=== PATIENT | female | born 1950 | race Caucasian/White ===

== ENCOUNTER → 2018-05-01 11:20 | Outpatient (CLI) | payer MEDICARE, OTHER, SELFPAY ==
--- NOTE | 2018-05-01 | DI.MG.S_ITS ---
BILATERAL DIGITAL SCREENING MAMMOGRAM 3D/2D WITH CAD: 05/01/2018 CLINICAL: Routine screening. Comparison is made to exams dated: 04/22/2017 mammogram, 04/19/2016 mammogram, and 04/12/2015 mammogram - [facility]. There are scattered fibroglandular elements in both breasts. Current study was also evaluated with a Computer Aided Detection (CAD) system. No significant masses, calcifications, or other findings are seen in either breast. There has been no significant interval change. IMPRESSION: NEGATIVE There is no mammographic evidence of malignancy. A 1 year screening mammogram is recommended. This exam was interpreted at Station ID: [id number]. NOTE: For mammograms, a report in lay terms will be sent to the patient. Approximately 15% of breast malignancies will not be visualized mammographically. In the management of a palpable breast mass, a negative mammogram must not discourage biopsy of a clinically suspicious lesion. Electronically Signed By: Elisa todd/concepción:05/01/2018 13:08:52 letter sent: Normal Exam ACR BI-RADS Category 1: Negative 3341F
== END ==
PROVIDERS: Family Provider Internal Medicine; PCP Internal Medicine; Visit Provider Internal Medicine
DX: Z12.31 Encounter for screening mammogram for malignant neoplasm of breast (principal)
CPT/HCPCS: 77063; 77067

== ENCOUNTER → 2018-07-08 07:43 | Outpatient (CLI) | payer MEDICARE, OTHER, SELFPAY ==
[2018-07-08 08:38] LABS: Blood Urea Nitrogen 41 mg/dL (7-17); Calcium 9.3 mg/dL (8.4-10.2); Carbon Dioxide 29 mmol/L (22-32); Chloride 103 mmol/L (98-107); Cholesterol 171 mg/dL (140-199); Estimated Glomerular Filt Rate 55.5 mL/min (>60); Glucose 85 mg/dL (80-110); HDL Cholesterol 80 mg/dL (40-60); HEMOLYSIS < 15 (0-50); LDL Cholesterol Calculated 80 mg/dL (<100); Potassium 4.5 mmol/L (3.4-5.1); Sodium 142 mmol/L (137-145); Triglycerides 54 mg/dL (35-150)
== END ==
PROVIDERS: PCP Internal Medicine; Visit Provider Internal Medicine
DX: I10 Essential (primary) hypertension (principal); E78.00 Pure hypercholesterolemia, unspecified
CPT/HCPCS: 36415; 80048; 80061

== ENCOUNTER → 2018-10-29 16:11 | Outpatient (CLI) | payer MEDICARE, OTHER, SELFPAY ==
[2018-10-29 17:25] LABS: Add Manual Diff / Slide Review NO; Basophils Absolute Auto 100 /uL (0-100); Basophils Percent Auto 0.8 % (0-2); Eosinophils Absolute Auto 400 /uL (0-450); Eosinophils Percent Auto 5.5 % (2-4); Hematocrit 45.1 % (36-46); Hemoglobin 14.4 g/dL (12.0-16.0); Lymphocytes Absolute Auto 1900 /uL (1100-4500); Lymphocytes Percent Auto 29.5 % (25-40); Mean Corpuscular HGB Conc 31.9 % (30-36); Mean Corpuscular Hemoglobin 30.4 PG (26-34); Mean Corpuscular Volume 95.4 fL (80-100); Monocytes Absolute Auto 500 /uL (0-900); Monocytes Percent Auto 7.9 % (3-14); Neutrophils Absolute Auto 3700 /uL (1500-7000); Neutrophils Percent Auto 56.3 % (50-75); Platelet Count 358 X10^3/uL (150-400); Red Blood Cell Count 4.73 X10^6/uL (4.0-5.2); Red Cell Distribution Width 14.7 % (11.6-14.8); White Blood Cell Count 6.6 X10^3/uL (4.5-11.0)
[2018-10-29 18:14] LABS: Alanine Aminotransferase 59 IU/L (9-52); Albumin 4.5 g/dL (3.5-5.0); Albumin Globulin Ratio 1.6 (1.0-2.8); Alkaline Phosphatase 116 U/L (38-126); Aspartate Aminotransferase 43 IU/L (14-36); Bilirubin Total 0.5 mg/dL (0.2-1.3); Bilirubin Unconjugated 0.3 mg/dL (0.0-1.1); Globulin 2.8 g/dL (1.7-4.1); HEMOLYSIS < 15 (0-50); Total Protein 7.3 g/dL (6.3-8.2)
== END ==
PROVIDERS: PCP Internal Medicine; Visit Provider Psychiatry & Neurology Neurology
DX: G35 Multiple sclerosis (principal)
CPT/HCPCS: 36415; 80076; 85025

== ENCOUNTER → 2019-03-26 08:44 | Outpatient (CLI) | payer MEDICARE, OTHER, SELFPAY ==
[2019-03-26 09:31] LABS: Add Manual Diff / Slide Review NO; Basophils Absolute Auto 100 /uL (0-100); Eosinophils Absolute Auto 800 /uL (0-450); Hematocrit 43.4 % (36-46); Hemoglobin 14.1 g/dL (12.0-16.0); Lymphocytes Absolute Auto 1300 /uL (1100-4500); Lymphocytes Percent Auto 26.9 % (25-40); Mean Corpuscular HGB Conc 32.4 % (30-36); Mean Corpuscular Hemoglobin 31.3 PG (26-34); Mean Corpuscular Volume 96.4 fL (80-100); Monocytes Absolute Auto 600 /uL (0-900); Neutrophils Absolute Auto 2100 /uL (1500-7000); Neutrophils Percent Auto 42.1 % (50-75); Platelet Count 306 X10^3/uL (150-400); Red Blood Cell Count 4.51 X10^6/uL (4.0-5.2); Red Cell Distribution Width 14.6 % (11.6-14.8)
[2019-03-26 10:04] LABS: Alanine Aminotransferase 64 IU/L (9-52); Albumin 4.1 g/dL (3.5-5.0); Albumin Globulin Ratio 1.4 (1.0-2.8); Alkaline Phosphatase 119 U/L (38-126); Aspartate Aminotransferase 63 IU/L (14-36); Bilirubin Total 0.5 mg/dL (0.2-1.3); Bilirubin Unconjugated 0.5 mg/dL (0.0-1.1); HEMOLYSIS < 15 (0-50); Total Protein 7.1 g/dL (6.3-8.2)
== END ==
PROVIDERS: PCP Internal Medicine; Visit Provider Psychiatry & Neurology Neurology
DX: G35 Multiple sclerosis (principal)
CPT/HCPCS: 36415; 80076; 85025

== ENCOUNTER → 2019-05-28 15:40 | Outpatient (CLI) | payer MEDICARE, OTHER, SELFPAY ==
--- NOTE | 2019-05-28 | DI.MG.S_ITS ---
BILATERAL DIGITAL SCREENING MAMMOGRAM 3D/2D WITH CAD: 05/28/2019 CLINICAL: Routine screening. Comparison is made to exams dated: 05/01/2018 mammogram, 04/22/2017 mammogram, and 04/19/2016 mammogram - [facility]. The tissue of both breasts is heterogeneously dense. This may lower the sensitivity of mammography. Current study was also evaluated with a Computer Aided Detection (CAD) system. No significant masses, calcifications, or other findings are seen in either breast. There has been no significant interval change. IMPRESSION: NEGATIVE There is no mammographic evidence of malignancy. A 1 year screening mammogram is recommended. This exam was interpreted at Station ID: [id number]. NOTE: For mammograms, a report in lay terms will be sent to the patient. Approximately 15% of breast malignancies will not be visualized mammographically. In the management of a palpable breast mass, a negative mammogram must not discourage biopsy of a clinically suspicious lesion. Electronically Signed By: Josesito gong/concepción:05/28/2019 17:05:31 letter sent: Normal Exam ACR BI-RADS Category 1: Negative 3341F
== END ==
PROVIDERS: PCP Internal Medicine; Visit Provider Internal Medicine
DX: Z12.31 Encounter for screening mammogram for malignant neoplasm of breast (principal)
CPT/HCPCS: 77063; 77067

== ENCOUNTER → 2019-05-28 15:43 | Outpatient (CLI) | payer MEDICARE, OTHER, SELFPAY ==
[2019-05-28 16:04] LABS: Add Manual Diff / Slide Review NO; Basophils Absolute Auto 100 /uL (0-100); Basophils Percent Auto 1.1 % (0-2); Eosinophils Absolute Auto 700 /uL (0-450); Eosinophils Percent Auto 8.5 % (2-4); Hematocrit 44.7 % (36-46); Hemoglobin 14.4 g/dL (12.0-16.0); Lymphocytes Absolute Auto 1800 /uL (1100-4500); Mean Corpuscular HGB Conc 32.3 % (30-36); Mean Corpuscular Hemoglobin 30.6 PG (26-34); Mean Corpuscular Volume 94.7 fL (80-100); Monocytes Absolute Auto 1000 /uL (0-900); Neutrophils Absolute Auto 4400 /uL (1500-7000); Neutrophils Percent Auto 55.4 % (50-75); Platelet Count 301 X10^3/uL (150-400); Red Blood Cell Count 4.72 X10^6/uL (4.0-5.2); Red Cell Distribution Width 14.6 % (11.6-14.8)
[2019-05-28 17:07] LABS: Alanine Aminotransferase 74 IU/L (9-52); Albumin 4.4 g/dL (3.5-5.0); Albumin Globulin Ratio 1.8 (1.0-2.8); Alkaline Phosphatase 164 U/L (38-126); Aspartate Aminotransferase 57 IU/L (14-36); Bilirubin Total 0.5 mg/dL (0.2-1.3); Bilirubin Unconjugated 0.3 mg/dL (0.0-1.1); Globulin 2.5 g/dL (1.7-4.1); HEMOLYSIS < 15 (0-50); Total Protein 6.9 g/dL (6.3-8.2)
== END ==
PROVIDERS: PCP Internal Medicine; Visit Provider Psychiatry & Neurology Neurology
DX: G35 Multiple sclerosis (principal)
CPT/HCPCS: 36415; 80076; 85025

== ENCOUNTER → 2019-06-10 08:14 | Outpatient (CLI) | payer MEDICARE, OTHER, SELFPAY ==
[2019-06-10 09:49] LABS: Alanine Aminotransferase 94 IU/L (9-52); Albumin 4.3 g/dL (3.5-5.0); Albumin Globulin Ratio 1.7 (1.0-2.8); Alkaline Phosphatase 156 U/L (38-126); Aspartate Aminotransferase 85 IU/L (14-36); Bilirubin Total 0.7 mg/dL (0.2-1.3); Bilirubin Unconjugated 0.4 mg/dL (0.0-1.1); Globulin 2.5 g/dL (1.7-4.1); HEMOLYSIS < 15 (0-50); Total Protein 6.8 g/dL (6.3-8.2)
== END ==
PROVIDERS: Family Provider Internal Medicine; PCP Internal Medicine; Visit Provider Psychiatry & Neurology Neurology
DX: G35 Multiple sclerosis (principal)
CPT/HCPCS: 36415; 80076

== ENCOUNTER → 2019-07-28 09:11 | Outpatient (CLI) | payer MEDICARE, OTHER, SELFPAY ==
[2019-07-28 09:57] LABS: Alanine Aminotransferase 45 IU/L (<35); Aspartate Aminotransferase 49 IU/L (14-36); BUN Creatinine Ratio 25.5 (6-22); Blood Urea Nitrogen 28 mg/dL (7-17); Calcium 9.7 mg/dL (8.4-10.2); Carbon Dioxide 32 mmol/L (22-32); Chloride 100 mmol/L (98-107); Cholesterol 245 mg/dL (140-199); Estimated Glomerular Filt Rate 49.5 mL/min (>60); Glucose 95 mg/dL (80-110); HDL Cholesterol 75 mg/dL (40-60); HEMOLYSIS < 15 (0-50); LDL Cholesterol Calculated 147 mg/dL (<100); Sodium 139 mmol/L (137-145); Triglycerides 115 mg/dL (35-150)
== END ==
PROVIDERS: PCP Internal Medicine; Visit Provider Internal Medicine
DX: I10 Essential (primary) hypertension (principal); E78.00 Pure hypercholesterolemia, unspecified
CPT/HCPCS: 36415; 80048; 80061; 84450; 84460

== ENCOUNTER → 2019-09-01 07:45 | Outpatient (CLI) | payer MEDICARE, SELFPAY ==
[2019-09-01 08:39] LABS: Alanine Aminotransferase 40 IU/L (<35); Albumin 4.2 g/dL (3.5-5.0); Albumin Globulin Ratio 1.5 (1.0-2.8); Alkaline Phosphatase 95 U/L (38-126); Aspartate Aminotransferase 49 IU/L (14-36); Bilirubin Total 0.6 mg/dL (0.2-1.3); Bilirubin Unconjugated 0.6 mg/dL (0.0-1.1); Globulin 2.8 g/dL (1.7-4.1); HEMOLYSIS < 15 (0-50)
== END ==
PROVIDERS: PCP Internal Medicine; Visit Provider Psychiatry & Neurology Neurology
DX: G35 Multiple sclerosis (principal)
CPT/HCPCS: 36415; 80076

== ENCOUNTER → 2019-10-21 08:21 | Outpatient (CLI) | payer MEDICARE, SELFPAY ==
[2019-10-21 09:08] LABS: Alanine Aminotransferase 27 IU/L (<35); Aspartate Aminotransferase 42 IU/L (14-36); Cholesterol 182 mg/dL (140-199); HDL Cholesterol 65 mg/dL (40-60); LDL Cholesterol Calculated 98 mg/dL (<100); Triglycerides 95 mg/dL (35-150)
== END ==
PROVIDERS: PCP Internal Medicine; Referring Provider Internal Medicine; Visit Provider Internal Medicine
DX: E78.00 Pure hypercholesterolemia, unspecified (principal)
CPT/HCPCS: 36415; 80061; 84450; 84460

== ENCOUNTER → 2019-12-09 09:24 | Outpatient (CLI) | payer MEDICARE, SELFPAY ==
[2019-12-09 10:19] LABS: Add Manual Diff / Slide Review NO; Basophils Absolute Auto 100 /uL (0-100); Basophils Percent Auto 1.1 % (0-2); Eosinophils Absolute Auto 500 /uL (0-450); Eosinophils Percent Auto 8.4 % (2-4); Hematocrit 42.5 % (36-46); Hemoglobin 14.1 g/dL (12.0-16.0); Lymphocytes Absolute Auto 1500 /uL (1100-4500); Lymphocytes Percent Auto 27.2 % (25-40); Mean Corpuscular HGB Conc 33.1 % (30-36); Mean Corpuscular Hemoglobin 31.2 PG (26-34); Mean Corpuscular Volume 94.2 fL (80-100); Monocytes Absolute Auto 500 /uL (0-900); Monocytes Percent Auto 9.8 % (3-14); Neutrophils Absolute Auto 3000 /uL (1500-7000); Neutrophils Percent Auto 53.5 % (50-75); Platelet Count 344 X10^3/uL (150-400); Red Blood Cell Count 4.51 X10^6/uL (4.0-5.2); Red Cell Distribution Width 14.8 % (11.6-14.8); White Blood Cell Count 5.5 X10^3/uL (4.5-11.0)
[2019-12-09 10:30] LABS: Alanine Aminotransferase 33 IU/L (<35); Albumin 4.1 g/dL (3.5-5.0); Albumin Globulin Ratio 1.5 (1.0-2.8); Alkaline Phosphatase 90 U/L (38-126); Aspartate Aminotransferase 44 IU/L (14-36); BUN Creatinine Ratio 25.2 (6-22); Bilirubin Total 0.6 mg/dL (0.2-1.3); Blood Urea Nitrogen 26 mg/dL (7-17); Calcium 9.6 mg/dL (8.4-10.2); Carbon Dioxide 31 mmol/L (22-32); Chloride 101 mmol/L (98-107); Estimated Glomerular Filt Rate 53.4 mL/min (>60); Globulin 2.8 g/dL (1.7-4.1); Glucose 75 mg/dL (80-110); HEMOLYSIS < 15 (0-50); Lactate Dehydrogenase 421 U/L (313-618); Potassium 4.1 mmol/L (3.4-5.1); Sodium 138 mmol/L (137-145); Total Protein 6.9 g/dL (6.3-8.2)
== END ==
PROVIDERS: PCP Internal Medicine; Referring Provider Physician Assistant; Visit Provider Physician Assistant
DX: R21 Rash and other nonspecific skin eruption (principal)
CPT/HCPCS: 36415; 80053; 83615; 85025

== ENCOUNTER → 2020-02-25 07:32 | Outpatient (CLI) | payer MEDICARE, SELFPAY ==
[2020-02-25 08:31] LABS: Hematocrit 41.5 % (36-46); Hemoglobin 13.7 g/dL (12.0-16.0); Mean Corpuscular HGB Conc 33.1 % (30-36); Mean Corpuscular Hemoglobin 31.2 PG (26-34); Mean Corpuscular Volume 94.4 fL (80-100); Platelet Count 322 X10^3/uL (150-400); Red Cell Distribution Width 14.7 % (11.6-14.8); White Blood Cell Count 5.1 X10^3/uL (4.5-11.0)
[2020-02-25 09:08] LABS: Neutrophils Absolute Manual 2397 /uL (3000-5900); RBC Morphology Normal Morphology; Total Cells Counted 100
== END ==
PROVIDERS: PCP Internal Medicine; Referring Provider Internal Medicine; Visit Provider Internal Medicine
DX: R21 Rash and other nonspecific skin eruption (principal)
CPT/HCPCS: 36415; 85025

== ENCOUNTER → 2020-03-16 10:40 | Oncology outpatient (ONC) | payer MEDICARE, SELFPAY ==
[2020-02-24 14:18] VITALS: BP 120/79; PULSE 88; RESP 18; TEMP 36.8; O2SAT 97
--- NOTE | 2020-02-24 15:16 | P.CONONC_ITS ---
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 She describes a 1-2 year history of a pruritic red rash that has predominantly been present on her legs. It she does not recall that it has been raised or had a thickness to it. It has responded to sunlight exposure as well as topical steroids. Because of the persistence of the rash she was seen by Holli delgadillo with Sir Elvis huerta at [facility] and a biopsy was obtained. This was non specific. Initially raise the question of a cutaneous T-cell lymphoma but there was not clear evidence of monoclonal T-cell receptor rearrangement. Peripheral blood for sleep flow cytometry was nondiagnostic. With these findings, she is referred for oncology consultation. From her perspective she is generally feeling good. She has noticed some alopecia the last year or 2 this been slowly progressive. She has multiple sclerosis that is worse in the heat. She has some arthritic symptoms in her hands primarily but knows red or swollen joints. She denies other pain, bleeding, localized weakness, fever, chills, nausea, vomiting, cough or shortn ess of breath. All other systems are negative. Past medical history 1. History of multiple sclerosis 2. She has had no operations or surgeries 3. Family history is remarkable for melanoma in her grandfather and liver cancer in her mother. 4. 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 She is a never smoker and only an occasional drinker. She is and accompanied by her who is very supportive 5. Current medications include atorvastatin 20 mg daily, citalopram 20 mg daily, lisinopril 20 mg daily, hydrochlorothiazide 12.5 mg daily, pramipexole 0.25 mg 3 times a day, as needed triamcinolone cream, fish oil, vitamin-D, glucosamine, Aimovig 70 mg once a month, as needed Flonase, as needed Rizatriptan, as needed Benadryl and as needed Tylenol 6. She is allergic to sulfa 7. She denies diabetes, rheumatic fever, tuberculosis, heart attacks, strokes, stomach ulcers, pneumonia or any kind of cancer 8. High blood pressure 9. Migraine headaches CC: Humberto Nelson MD Home Medications and Allergies Home Medications Medication Instructions Recorded Confirmed Type [glucosamine/chondrot] 1 tab DAILY #0 05/04/17 02/24/20 History cholecalciferol (vitamin D3) 1,000 iu PO QDAY #0 05/04/17 02/24/20 History [Vitamin D3] omega 3-tvn-rcn-fish oil [Fish Oil] 1,000 mg PO DAILY #0 05/04/17 02/24/20 History fluticasone propionate 50 2 spray NASAL DAILY 12/16/17 02/24/20 History mcg/actuation nasal spray,suspension onabotulinumtoxinA 200 unit 200 unit IM ONCE 12/16/17 02/24/20 History solution for injection pramipexole 0.25 mg tablet 0.25 mg PO TID 12/16/17 02/24/20 History atorvastatin 10 mg tablet 20 mg PO HS #0 tab 01/27/18 02/24/20 History citalopram 20 mg tablet 20 mg PO DAILY 01/27/18 02/24/20 History triamcinolone acetonide 0.5 % 1 applictn TOP BID 01/27/18 02/24/20 History topical cream rizatriptan 10 mg tablet 10 mg PO .COMPLEX PRN #6 tab 03/25/18 02/24/20 Rx erenumab-aooe 70 mg/mL 140 mg SUBCUT QMONTH #2 ml 09/24/18 02/24/20 Rx subcutaneous auto-injector erenumab-aooe 140 mg/mL 140 mg SUBCUT QMONTH #1 ml 05/21/19 02/24/20 Rx subcutaneous auto-injector lisinopril-hydrochlorothiazide 1 tab DAILY 02/24/20 02/24/20 History Allergies Allergy/AdvReac Type Severity Reaction Status Date / Time Sulfa (Sulfonamide Allergy Unknown RASH Verified 07/14/19 11:40 Antibiotics) [SULFA (SULFONAMIDE ANTIBIOTICS)] Medical History - Social History Smoking Status: Never smoker Review of Systems - Patient Self-Reported Symptoms SR Skin issues: Skin rash or itching, Hair loss or scalp prob SR Musculoskeletal issues: Joint pain or swelling SR Neuro issues: Headache SR Endocrine issues: Heat intolerance Exam Vital signs: Vital Signs Temp Pulse Resp BP Pulse Ox 02/24/20 14:18 98.2 F 88 18 120/79 97 Intake and Output 02/23/20 02/24/2020 23:59 07:59 15:59 Other: Weight 54.1 kg Patient Weight 02/24/20 23:59 Weight 54.1 kg Narrative: There was no palpable lymphadenopathy in the cervical, supraclavicular, epitrochlear, axillary, inguinal or femoral regions. There were several slightly red non raised areas on her upper legs and several areas of thinning of the skin primarily on her legs. There were no raised or pigmented lesions. Her previous biopsy site looked well healed. The nails were normal. Lungs were clear without wheezes or rales. Breath sounds were equal throughout both lung miranda. Results - Imaging Additional studies: Procedures Closed reduction of temporomandibular dislocation (04/05/14) Colonoscopy (01/18/14) Injection or infusion of other therapeutic or prophylactic substance (04/05/14) Assessment and Plan (1) Rash and nonspecific skin eruption Status: Acute Her rash has some reassuring aspects in that it has been present for the past 1- 2 years, has waxed and waned significantly, is better with sunlight exposure and topical steroids, at that and does not have an associated skin thickening. The chemistry panel was unrevealing. Both flow cytometry and biopsy were not diagnostic of an underlying T-cell lymphoma or other malignancy. I discussed Ms. Davidson's case with ELVIS Robertson from [facility]. Ms. magana her confirmed the time frame and rash features described by the patient. We reviewed the fact that the current findings are new nondiagnostic. I will will request a 2nd opinion on her pathology from the [facility]. Will also send of CBC with manual differential today. Will plan to see her back here for follow-up in 2-3 weeks to review these results. Further plans will be made once the steps have been completed. I personally spent 46 minutes in today's [id number] visit with greater than 50% of the time spent in counseling regarding the issues outlined above. Impression: 1. Fluctuating pruritic, red, nonraised skin rash over the past 1-2 years 2. Indeterminate findings for lymphoma on skin biopsy and peripheral blood flow cytometry 3. Patient is clinically well Recommendations: 1. Will request a 2nd pathology opinion on her biopsy and flow cytometry from the [facility] 2. 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 CBC with manual differential today 4. Return in 2-3 weeks for review of results with further plans to made at that time.
--- NOTE | 2020-03-14 12:03 | PC.NURSE ---
Pt called to inquire whether or not the [facility] consult had occurred, as per Dr. Jeronimo from the last f/u. Pt is wondering whether to keep upcoming scheduled appointment on Saturday. Will f/u with pt.
[2020-03-16 11:07] VITALS: BP 110/70; PULSE 76; RESP 16; TEMP 36.8; O2SAT 96
--- NOTE | 2020-03-16 13:04 | P.PNONC_ITS ---
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 She describes a 1-2 year history of a pruritic red rash that has predominantly been present on her legs. It she does not recall that it has been raised or had a thickness to it. It has responded to sunlight exposure as well as topical steroids. Because of the persistence of the rash she was seen by Holli delgadillo with Sir Cain huerta at [facility] and a biopsy was obtained. This was non specific. Initially raise the question of a cutaneous T-cell lymphoma but there was not clear evidence of monoclonal T-cell receptor rearrangement. Peripheral blood for sleep flow cytometry was nondiag nostic. With these findings, she is referred for oncology consultation. From her perspective she is generally feeling good. She has noticed some alopecia the last year or 2 this been slowly progressive. She has multiple sclerosis that is worse in the heat. She has some arthritic symptoms in her hands primarily but knows red or swollen joints. She denies other pain, bleeding, localized weakness, fever, chills, nausea, vomiting, cough or shortness of breath. All other systems are negative. Past medical history 1. History of multiple sclerosis 2. She has had no operations or surgeries 3. Family history is remarkable for melanoma in her grandfather and liver cancer in her mother. 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 She is a never smoker and only an occasional drinker. She is and accompanied by her who is very supportive 5. Current medications include atorvastatin 20 mg daily, citalopram 20 mg daily, lisinopril 20 mg daily, hydrochlorothiazide 12.5 mg daily, pramipexole 0.25 mg 3 times a day, as needed triamcinolone cream, fish oil, vitamin-D, glucosamine, Aimovig 70 mg once a month, as needed Flonase, as needed Rizatriptan, as needed Benadryl and as needed Tylenol 6. She is allergic to sulfa 7. She denies diabetes, rheumatic fever, tuberculosis, heart attacks, strokes, stomach ulcers, pneumonia or any kind of cancer 8. High blood pressure 9. Migraine headaches At the time of her last visit the decision was made to request a 2nd opinion on her recent skin biopsy. This was accomplished and she comes in today to review the results. Since he was last in she continues to feel fine with no new complaints. - Patient Self-Reported Symptoms SR Skin issues: Hair loss or scalp prob SR Musculoskeletal issues: Joint pain or swelling SR Neuro issues: Numbness or tingling, Tremors or shaking, Difficulty balancing SR Endocrine issues: Heat intolerance Home Medications and Allergies Home Medications Medication Instructions Recorded Confirmed Type [glucosamine/chondrot] 1 tab DAILY #0 05/04/17 03/16/20 History cholecalciferol (vitamin D3) 1,000 iu PO QDAY #0 05/04/17 03/16/20 History [Vitamin D3] omega 6-xsy-pyf-fish oil [Fish Oil] 1,000 mg PO DAILY #0 05/04/17 03/16/20 History fluticasone propionate 50 2 spray NASAL DAILY 12/16/17 03/16/20 History mcg/actuation nasal spray,suspension onabotulinumtoxinA 200 unit 200 unit IM ONCE 12/16/17 03/16/20 History solution for injection pramipexole 0.25 mg tablet 0.25 mg PO TID 12/16/17 03/16/20 History atorvastatin 10 mg tablet 20 mg PO HS #0 tab 01/27/18 03/16/20 History citalopram 20 mg tablet 20 mg PO DAILY 01/27/18 03/16/20 History triamcinolone acetonide 0.5 % 1 applictn TOP BID 01/27/18 03/16/20 History topical cream rizatriptan 10 mg tablet 10 mg PO .COMPLEX PRN #6 tab 03/25/18 03/16/20 Rx erenumab-aooe 70 mg/mL 140 mg SUBCUT QMONTH #2 ml 09/24/18 03/16/20 Rx subcutaneous auto-injector erenumab-aooe 140 mg/mL 140 mg SUBCUT QMONTH #1 ml 05/21/19 03/16/20 Rx subcutaneous auto-injector lisinopril-hydrochlorothiazide 1 tab DAILY 02/24/20 03/16/20 History Allergies Allergy/AdvReac Type Severity Reaction Status Date / Time Sulfa (Sulfonamide Allergy Unknown RASH Verified 07/14/19 11:40 Antibiotics) [SULFA (SULFONAMIDE ANTIBIOTICS)] Exam Vital signs: Vital Signs Temp Pulse Resp BP Pulse Ox 03/16/20 11:07 98.3 F 76 16 110/70 96 Intake and Output 03/15/20 03/16/20 03/16/20 23:59 07:59 15:59 Other: Weight 54 kg Patient Weight 03/16/20 23:59 Weight 54 kg Narrative: She was awake, alert and oriented x3. She was fully ambulatory and in no acute distress. Results - Imaging Additional studies: Procedures Closed reduction of temporomandibular dislocation (04/05/14) Colonoscopy (01/18/14) Injection or infusion of other therapeutic or prophylactic substance (04/05/14) Assessment and Plan (1) Rash and nonspecific skin eruption Status: Acute Pathology review from the [facility] showed an atypical epidermal trophic lymphocytic infiltrate. There was concern this could represent patch stage mycosis fungoides. However, the clonality studies did not support this. I explained to her and her supervisor winter that she does not have a an established diagnosis of malignancy. We reviewed the fact that we could do additional testing. She did have a CT scan. However, the likelihood of finding clinically significant internal lymphadenopathy with her limited skin symptoms and no palpable peripheral disease is small. I also explained we could do a bone marrow examination. However, her blood count and peripheral blood flow cytometry are normal and I think the yield on this would also be small. Her rash has some reassuring aspects in that it has been present for the past 1- 2 years, has waxed and waned significantly, is better with sunlight exposure and topical steroids, and does not have an associated skin thickening. The chemistry panel was unrevealing. Both flow cytometry and biopsy were not diagnostic of an underlying T-cell lymphoma or other malignancy. I think the most appropriate strategy in her situation would be ongoing follow- up. I suggested that she see her dermatology team every 6 months, sooner if she develops any change in her rash. This would include were general worsening, development of skin thickening, or other new findings. We will defer any further workup at this time as discussed above. I would be happy to see her any time of we could be of assistance in her care, but no specific return appointment has been scheduled to this office. Impression: 1. Fluctuating pruritic, red, nonraised skin rash over the past 1-2 years 2. Indeterminate findings for lymphoma on skin biopsy and peripheral blood flow cytometry, including review of pathology at the [facility] 3. Patient is clinically well Recommendations: 1. Options for additional workup including a CT scan and bone marrow were discussed with the patient 2. I would recommend ongoing follow-up at this time with a skin exam by her dermatology team every 6 months 3. Would be happy to see her back here at any time if there is any change in her status 4. No specific return appointment has been scheduled to this office
== END ==
PROVIDERS: PCP Internal Medicine; Referring Provider Internal Medicine; Visit Provider Internal Medicine
DX: L29.8 Other pruritus (principal); G35 Multiple sclerosis; I10 Essential (primary) hypertension
CPT/HCPCS: 99204; 99214

== ENCOUNTER → 2020-06-01 11:23 | Outpatient (CLI) | payer MEDICARE, SELFPAY ==
--- NOTE | 2020-06-01 | DI.MG.S_ITS ---
BILATERAL DIGITAL SCREENING MAMMOGRAM 3D/2D WITH CAD: 06/01/2020 CLINICAL: Routine screening. Comparison is made to exams dated: 05/28/2019 mammogram, 05/01/2018 mammogram, and 04/22/2017 mammogram - [facility]. The tissue of both breasts is heterogeneously dense. This may lower the sensitivity of mammography. Current study was also evaluated with a Computer Aided Detection (CAD) system. No significant masses, calcifications, or other findings are seen in either breast. There has been no significant interval change. IMPRESSION: NEGATIVE There is no mammographic evidence of malignancy. A 1 year screening mammogram is recommended. This exam was interpreted at Station ID: [id number]. NOTE: For mammograms, a report in lay terms will be sent to the patient. Approximately 15% of breast malignancies will not be visualized mammographically. In the management of a palpable breast mass, a negative mammogram must not discourage biopsy of a clinically suspicious lesion. Electronically Signed By: Josesito gong/concepción:06/01/2020 13:04:31 letter sent: Normal Exam ACR BI-RADS Category 1: Negative 3341F
== END ==
PROVIDERS: PCP Internal Medicine; Referring Provider Internal Medicine; Visit Provider Internal Medicine
DX: Z12.31 Encounter for screening mammogram for malignant neoplasm of breast (principal)
CPT/HCPCS: 77063; 77067

== ENCOUNTER → 2020-11-25 07:59 | Outpatient (CLI) | payer OTHER, SELFPAY ==
[2020-11-25 09:58] LABS: Alanine Aminotransferase 26 IU/L (<35); Albumin 4.1 g/dL (3.5-5.0); Albumin Globulin Ratio 1.6 (1.0-2.8); Alkaline Phosphatase 82 U/L (38-126); Aspartate Aminotransferase 39 IU/L (14-36); BUN Creatinine Ratio 26.6 (6-22); Bilirubin Total 0.5 mg/dL (0.2-1.3); Blood Urea Nitrogen 33 mg/dL (7-17); Calcium 9.9 mg/dL (8.4-10.2); Carbon Dioxide 29 mmol/L (22-32); Chloride 97 mmol/L (98-107); Cholesterol 151 mg/dL (140-199); Globulin 2.5 g/dL (1.7-4.1); Glucose 93 mg/dL (80-110); HDL Cholesterol 66 mg/dL (40-60); HEMOLYSIS < 15 (0-50); LDL Cholesterol Calculated 67 mg/dL (<100); Potassium 4.4 mmol/L (3.4-5.1); Sodium 134 mmol/L (137-145); Total Protein 6.6 g/dL (6.3-8.2); Triglycerides 90 mg/dL (35-150)
== END ==
PROVIDERS: PCP Internal Medicine; Referring Provider Internal Medicine; Visit Provider Internal Medicine
DX: E78.00 Pure hypercholesterolemia, unspecified (principal); I10 Essential (primary) hypertension
CPT/HCPCS: 36415; 80053; 80061

== ENCOUNTER → 2021-06-05 16:37 | Outpatient (CLI) | payer OTHER, SELFPAY ==
--- NOTE | 2021-06-05 | DI.MG.S_ITS ---
BILATERAL DIGITAL SCREENING MAMMOGRAM 3D/2D WITH CAD: 06/05/2021 CLINICAL: Routine screening. Comparison is made to exams dated: 06/01/2020 mammogram, 05/28/2019 mammogram, and 05/01/2018 mammogram - [facility]. The tissue of both breasts is heterogeneously dense. This may lower the sensitivity of mammography. Current study was also evaluated with a Computer Aided Detection (CAD) system. No significant masses, calcifications, or other findings are seen in either breast. There has been no significant interval change. IMPRESSION: NEGATIVE There is no mammographic evidence of malignancy. A 1 year screening mammogram is recommended. This exam was interpreted at Station ID: [id number]. NOTE: For mammograms, a report in lay terms will be sent to the patient. Approximately 15% of breast malignancies will not be visualized mammographically. In the management of a palpable breast mass, a negative mammogram must not discourage biopsy of a clinically suspicious lesion. Electronically Signed By: David Ramey acr/penrad:06/06/2021 07:58:05 letter sent: Normal Exam ACR BI-RADS Category 1: Negative 3341F
== END ==
PROVIDERS: PCP Internal Medicine; Referring Provider Internal Medicine; Visit Provider Internal Medicine
DX: Z12.31 Encounter for screening mammogram for malignant neoplasm of breast (principal)
CPT/HCPCS: 77063; 77067

== ENCOUNTER → 2022-06-12 13:26 | Outpatient (CLI) | payer OTHER, SELFPAY ==
--- NOTE | 2022-06-12 13:28 | DI.MG.S_ITS ---
BILATERAL DIGITAL SCREENING MAMMOGRAM 3D/2D WITH CAD: 06/12/2022 CLINICAL: Routine screening. Comparison is made to exams dated: 06/05/2021 mammogram, 06/01/2020 mammogram, and 05/28/2019 mammogram - [facility]. Both breasts are heterogeneously dense, which may obscure small masses (category c / 51-75% glandular tissue). Current study was also evaluated with a Computer Aided Detection (CAD) system. No significant masses, calcifications, or other findings are seen in either breast. There has been no significant interval change. IMPRESSION: NEGATIVE There is no mammographic evidence of malignancy. A 1 year screening mammogram is recommended. Based on the Tyrer Cuzick model (a risk assessment model) the patient's lifetime risk is 8.0% and her 10 year risk is 5.1%. According to the ACR, ACS, and NCCN guidelines, an annual breast MRI exam along with mammogram is recommended if the patient's lifetime risk is 20% or greater. This exam was interpreted at Station ID: [id number]. NOTE: For mammograms, a report in lay terms will be sent to the patient. Approximately 15% of breast malignancies will not be visualized mammographically. In the management of a palpable breast mass, a negative mammogram must not discourage biopsy of a clinically suspicious lesion. Electronically Signed By: Elisa todd/concepción:06/12/2022 14:22:36 letter sent: Normal Exam ACR BI-RADS Category 1: Negative 3341F
== END ==
PROVIDERS: PCP Internal Medicine; Referring Provider Internal Medicine; Visit Provider Internal Medicine
DX: Z12.31 Encounter for screening mammogram for malignant neoplasm of breast (principal)
CPT/HCPCS: 77063; 77067

== ENCOUNTER → 2022-10-26 11:16 | Outpatient (CLI) | payer OTHER, SELFPAY ==
--- NOTE | 2022-10-26 11:19 | DI.RAD.S_ITS ---
PROCEDURE: XR CHEST 2V INDICATIONS: COUGH FOR ONE MONTH TECHNIQUE: 2 views of the chest were acquired. COMPARISON: None. FINDINGS: Surgical changes and devices: None. Lungs and pleura: Lungs are clear. No pleural effusions or pneumothorax. Mediastinum: Mediastinal contours are normal. Heart size is normal. Bones and chest wall: No suspicious bony abnormalities. Ovoid radiopaque density projecting over the left lung apex measuring 1.6 x 0.4 cm. IMPRESSION: 1. No acute cardiopulmonary process. 2. Ovoid radiopaque density projecting over the left lung apex measuring 1.6 x 0.4 cm. This is most likely external to the patient. Dictated by: Esequiel Kumar M.D. on 10/26/2022 at 12:08 Approved by: Esequiel Kumar M.D. on 10/26/2022 at 12:09
== END ==
PROVIDERS: PCP Internal Medicine; Referring Provider Internal Medicine; Visit Provider Internal Medicine
DX: R05.9 Cough, unspecified (principal)
CPT/HCPCS: 71046

== ENCOUNTER → 2023-06-12 | Outpatient (CLI) | payer OTHER, SELFPAY ==
--- NOTE | 2023-06-12 13:12 | DI.MG.S_ITS ---
BILATERAL DIGITAL SCREENING MAMMOGRAM 3D/2D WITH CAD: 06/12/2023 CLINICAL: Routine screening. Comparison is made to exams dated: 06/12/2022 mammogram, 06/05/2021 mammogram, and 06/01/2020 mammogram - [facility]. Both breasts are heterogeneously dense, which may obscure small masses (category c / 51-75% glandular tissue). Current study was also evaluated with a Computer Aided Detection (CAD) system. There is a possible developing irregular equal density asymmetry with a spiculated margin in the left breast at 6 o'clock anterior depth. No other significant masses, calcifications, or other findings are seen in either breast. There has been no significant interval change. IMPRESSION: INCOMPLETE: NEEDS ADDITIONAL IMAGING EVALUATION The possible developing irregular equal density asymmetry in the left breast is indeterminate. Additional views with possible ultrasound are recommended. Based on the Tyrer Cuzick model (a risk assessment model) the patient's lifetime risk is 7.6% and her 10 year risk is 5.2%. According to the ACR, ACS, and NCCN guidelines, an annual breast MRI exam along with mammogram is recommended if the patient's lifetime risk is 20% or greater. This exam was interpreted at Station ID: [id number]. NOTE: For mammograms, a report in lay terms will be sent to the patient. Approximately 15% of breast malignancies will not be visualized mammographically. In the management of a palpable breast mass, a negative mammogram must not discourage biopsy of a clinically suspicious lesion. Electronically Signed By: Deena wilson/concepción:06/12/2023 15:57:39 letter sent: Additional Imaging Needed ACR BI-RADS Category 0: Incomplete 3340F
== END ==
PROVIDERS: PCP Internal Medicine; Referring Provider Internal Medicine; Visit Provider Internal Medicine
DX: Z12.31 Encounter for screening mammogram for malignant neoplasm of breast (principal)
CPT/HCPCS: 77063; 77067

== ENCOUNTER → 2023-07-08 09:25 | Outpatient (CLI) | payer OTHER, SELFPAY ==
--- NOTE | 2023-07-08 | DI.MG.S_ITS ---
UNILATERAL LEFT DIGITAL DIAGNOSTIC MAMMOGRAM 3D/2D WITH ADDITIONAL VIEWS: 07/08/2023 CLINICAL: Additional evaluation requested from prior study. Comparison is made to exams dated: 06/12/2023 mammogram, 06/12/2022 mammogram, and 06/05/2021 mammogram - [facility]. The left breast is heterogeneously dense, which may obscure small masses (category c / 51-75% glandular tissue). The previously described possible developing irregular equal density asymmetry in the left breast at 6 o'clock anterior depth is no longer seen and most likely is fibroglandular tissue. This is not confirmed in today's additional views and is consistent with summation artifact. No other significant masses or calcifications are seen in the breast. IMPRESSION: BENIGN The previously described asymmetry disperses with additional views and is consistent with summation artifact. There is no mammographic evidence of malignancy. A 1 year screening mammogram is recommended. Findings and recommendations were conveyed to the patient during today's evaluation. Based on the Tyrer Cuzick model (a risk assessment model) the patient's lifetime risk is 7.6% and her 10 year risk is 5.2%. According to the ACR, ACS, and NCCN guidelines, an annual breast MRI exam along with mammogram is recommended if the patient's lifetime risk is 20% or greater. This exam was interpreted at Station ID: [id number]. NOTE: For mammograms, a report in lay terms will be sent to the patient. Approximately 15% of breast malignancies will not be visualized mammographically. In the management of a palpable breast mass, a negative mammogram must not discourage biopsy of a clinically suspicious lesion. Electronically Signed By: Marvin Cordova M.D. aty/:07/08/2023 09:54:16 letter sent: Normal Exam ACR BI-RADS Category 2: Benign Finding(s) [id number]
== END ==
PROVIDERS: PCP Internal Medicine; Referring Provider Internal Medicine; Visit Provider Internal Medicine
DX: R92.8 Other abnormal and inconclusive findings on diagnostic imaging of breast (principal)
CPT/HCPCS: 77065; G0279

== ENCOUNTER → 2024-02-12 08:40 | Outpatient (CLI) | payer MEDICARE, SELFPAY ==
--- NOTE | 2024-02-12 08:42 | DI.RAD.S_ITS ---
PROCEDURE: XR CHEST 2V INDICATIONS: Cough TECHNIQUE: 2 views of the chest were acquired. COMPARISON: [facility], CR, XR CHEST 2V, 10/26/2022, 11:18. FINDINGS: Surgical changes and devices: None. Lungs and pleura: Slight appearance right basilar Mediastinum: Mediastinal contours are normal. Heart size is normal. Bones and chest wall: No suspicious bony abnormalities. Soft tissues appear unremarkable. IMPRESSION: Slight right basilar opacity suspicious for pneumonia. Dictated by: Elvi Palencia M.D. on 02/12/2024 at 9:54 Approved by: Elvi Palencia M.D. on 02/12/2024 at 10:57
== END ==
PROVIDERS: PCP Internal Medicine; Referring Provider Nurse Practitioner Family; Visit Provider Nurse Practitioner Family
DX: R05.9 Cough, unspecified (principal)
CPT/HCPCS: 71046

== ENCOUNTER → 2024-03-20 07:24 | Outpatient (CLI) | payer MEDICARE, SELFPAY ==
[2024-03-20 07:52] LABS: Add Manual Diff / Slide Review NO; Basophils Absolute Auto 100 /uL (0-100); Basophils Percent Auto 1.4 % (0-2); Eosinophils Absolute Auto 400 /uL (0-450); Eosinophils Percent Auto 5.8 % (2-4); Lymphocytes Absolute Auto 1800 /uL (1100-4500); Lymphocytes Percent Auto 27.7 % (25-40); Mean Corpuscular HGB Conc 32.5 % (30-36); Mean Corpuscular Hemoglobin 30.2 PG (26-34); Monocytes Absolute Auto 600 /uL (0-900); Monocytes Percent Auto 9.8 % (3-14); Neutrophils Absolute Auto 3600 /uL (1500-7000); Neutrophils Percent Auto 55.3 % (50-75); Platelet Count 382 X10^3/uL (150-400); Red Blood Cell Count 4.62 X10^6/uL (4.0-5.2); Red Cell Distribution Width 16.1 % (11.6-14.8); White Blood Cell Count 6.6 X10^3/uL (4.5-11.0)
[2024-03-20 08:25] LABS: Alanine Aminotransferase 43 IU/L (<35); Albumin 4.1 g/dL (3.5-5.0); Albumin Globulin Ratio 1.6 (1.0-2.8); Alkaline Phosphatase 109 U/L (38-126); Aspartate Aminotransferase 53 IU/L (14-36); BUN Creatinine Ratio 21.9 (6-22); Bilirubin Total 0.6 mg/dL (0.2-1.3); Blood Urea Nitrogen 25 mg/dL (7-17); Calcium 9.6 mg/dL (8.4-10.2); Carbon Dioxide 32 mmol/L (22-32); Chloride 103 mmol/L (98-107); Cholesterol 191 mg/dL (140-199); Estimated Glomerular Filt Rate 51 mL/min (>60); Globulin 2.5 g/dL (1.7-4.1); Glucose 101 mg/dL (80-110); HDL Cholesterol 81 mg/dL (40-60); HEMOLYSIS < 15 (0-50); LDL Cholesterol Calculated 92 mg/dL (<100); Potassium 4.5 mmol/L (3.4-5.1); Sodium 139 mmol/L (137-145); Total Protein 6.6 g/dL (6.3-8.2); Triglycerides 90 mg/dL (35-150); Uric Acid 4.7 mg/dL (2.5-6.2)
[2024-03-20 08:56] LABS: Ferritin 67 ng/mL (11-264)
== END ==
PROVIDERS: PCP Family Medicine; Referring Provider Family Medicine; Visit Provider Family Medicine
DX: I10 Essential (primary) hypertension (principal); E78.5 Hyperlipidemia, unspecified; G35 Multiple sclerosis; G25.81 Restless legs syndrome; M79.676 Pain in unspecified toe(s); G43.909 Migraine, unspecified, not intractable, without status migrainosus
CPT/HCPCS: 36415; 80053; 80061; 82728; 84550; 85025

== ENCOUNTER 2024-05-15 12:22 | Day surgery (SDC) | payer MEDICARE, SELFPAY ==
[2024-05-15 12:41] VITALS: BP 151/83; PULSE 93; RESP 17; TEMP 36.2; O2SAT 98
[2024-05-15 13:01] VITALS: BP 151/83; PULSE 93; RESP 17; TEMP 36.2; O2SAT 98
[2024-05-15] MEDS: LACTATED RINGERS 1,000 ML 42 ML IV (13:05)
--- NOTE | 2024-05-15 13:13 | P.HP_ITS ---
History of Present Illness History of Present Illness Date Patient Seen: 05/15/24 Time Patient Seen: 13:13 Chief complaint: SDC Narrative: 73-year-old woman here for screening colonoscopy. Last colonoscopy 10 years ago normal. No family history of colon cancer. No abdominal concerns today. [facility] Medical History (Updated 03/16/24 @ 08:53 by Radha Zazueta DO) CKD (chronic kidney disease) stage 3, GFR 30-59 ml/min Benign essential HTN Hyperlipidemia Multiple sclerosis RLS (restless legs syndrome) Social History Smoking Status: Never smoker Meds Home Medications and Allergies Home Medications Medication Instructions Recorded Confirmed Type cholecalciferol (vitamin D3) 25 1,000 iu PO QDAY ##0 05/04/17 04/17/24 History mcg (1,000 unit) tablet (Vitamin D3) omega 6-mlb-cfh-fish oil 1,000 mg 1,000 mg PO DAILY ##0 05/04/17 04/17/24 History (120 mg-180 mg) capsule (Fish Oil) fluticasone propionate 50 2 spray intranasal DAILY 12/16/17 04/17/24 History mcg/actuation nasal spray,suspension pramipexole 0.25 mg tablet 0.25 mg PO TID 12/16/17 04/17/24 History citalopram 20 mg tablet 20 mg PO DAILY 01/27/18 04/17/24 History rizatriptan 10 mg tablet 10 mg PO .COMPLEX PRN migraine 03/25/18 04/17/24 Rx headache #6 tabs erenumab-aooe 140 mg/mL 140 mg SUBCUT QMONTH #1 mL 05/21/19 05/15/24 Rx subcutaneous auto-injector (Aimovig Autoinjector) atorvastatin 20 mg tablet 20 mg PO DAILY #90 tabs 03/16/24 05/15/24 Rx fexofenadine 60 mg-pseudoephedrine 1 tab PO BID 03/16/24 04/17/24 History ER 120 mg tablet,ext.release,12 hr (Allergy Relief-D (fexofenadine)) glucosamine-chondroitin 1,500 mg ea PO 03/16/24 04/17/24 History -1,200 mg/30 mL oral liquid lisinopril 20 mg tablet 20 mg PO DAILY #90 tabs 03/16/24 04/17/24 Rx triamcinolone acetonide 0.1 % topical 03/16/24 04/17/24 History topical ointment sodium,potassium,mag sulfates 17.5 See Rx Instructions PO .COMPLEX 04/14/24 04/17/24 Rx gram-3.13 gram-1.6 gram oral soln #354 mL (Suprep Bowel Prep Kit) cyclobenzaprine 5 mg tablet 5 mg PO TID PRN muscle spasm #30 04/17/24 04/17/24 Rx tabs erythromycin 5 mg/gram (0.5 %) eye EYE-BOTH 04/17/24 04/17/24 History ointment lidocaine 4 % topical patch 1 patch topical DAILY PRN pain #10 04/17/24 04/17/24 Rx ea moxifloxacin 0.5 % eye drops drp EYE-BOTH 04/17/24 04/17/24 History naproxen 250 mg tablet 250 mg PO BID PRN pain #20 tabs 04/17/24 04/17/24 Rx prednisolone acetate 1 % eye drp EYE-BOTH 04/17/24 04/17/24 History drops,suspension Allergies Allergy/AdvReac Type Severity Reaction Status Date / Time Sulfa (Sulfonamide Allergy Unknown RASH Verified 05/15/24 12:34 Antibiotics) [SULFA (SULFONAMIDE ANTIBIOTICS)] Exam Vital Signs (past 8 hours): - 05/15/24 12:41 05/15/24 13:01 Temperature 97.1 F L 97.2 F L Pulse Rate 93 H 93 H Respiratory Rate 17 17 Blood Pressure 151/83 H 151/83 H Pulse Oximetry 98 98 Oxygen Delivery Method Room Air Room Air Oxygen Delivery Method Room Air Narrative Exam Narrative: General adult woman alert oriented no acute distress Chest nonlabored respiration Extremities warm well perfused Assessment & Plan Assessment & Plan narrative: The patient requires colorectal screening and colonoscopy is recommended. Technical details were discussed. Risks, benefits, alternatives explained. Risks including but not limited to myocardial infarction, aspiration, bleeding, pain, missed lesion, incomplete examination, need for further radiographic studies, intestinal injury, and need for major abdominal surgery were discussed. All questions were answered to their satisfaction, and they are in agreement with this plan. Time-Based Coding :: [TOTAL MINUTES] spent with patient and on the chart (including review of chart, obtaining history, exam, reviewing outside data, placing orders, documenting exam and treatment plan, and counseling patient) on [DATE].
[2024-05-15 13:49] VITALS: BP 127/72; PULSE 82; RESP 12; TEMP 36.1; O2SAT 92
--- NOTE | 2024-05-15 13:52 | P.OP.COLON_ITS ---
Operative Date/Time/Diagnoses Date of procedure: 05/15/24 Time of procedure: 13:52 Pre-op diagnosis: Colorectal screening Procedure & Clinicians Study performed: Screening colonoscopy Same procedure as scheduled: Yes Indications: Screening Surgeon: Don Fox Procedure Notes Procedure in detail: The history and physical was performed/updated and the patient is ASA class is 2. The procedure was discussed in detail with the patient. Potential risks complications including infection, bleeding, missed diagnosis, perforation, need for surgery, and were explained. Their questions were answered and informed consent was obtained. Patient was brought to the procedure room and placed standard monitoring equipment. The patient's vital signs were monitored continuously throughout the entire procedure. Prior to starting time-out was performed. The patient was placed in the left lateral recumbent position. Procedural sedation was administered by anesthesia. Examination began with a thorough inspection of the perianal area there was no evidence of fissures, fistulae, external hemorrhoids or cutaneous malignancy. The colonoscopy scope was then placed into the anal canal and was advanced to the cecum, which was identified by the ileocecal valve, the appendiceal orifice and the confluence of the taenia. The scope was then slowly withdrawn examining colon thoroughly in all directions, irrigating it of any residual stool. The scope was retroflexed within the rectum The patient tolerated the procedure well. They will be discharged once criteria are met. The prep was of good/excellent quality. The withdrawl time was 6 minutes. FINDINGS * Tortuous colon. Required stiffening of the scope and external compression. * No mass or polyps Specimen(s): none sent Impression: Tortuous colon otherwise unremarkable Post-procedure Plan for aftercare: No further colonoscopy Disposition: same day surgery
[2024-05-15 13:54] VITALS: BP 132/69; PULSE 78; RESP 14; O2SAT 96
[2024-05-15 14:00] VITALS: BP 141/78; PULSE 77; RESP 16; O2SAT 97
[2024-05-15 14:05] VITALS: BP 147/89; PULSE 89; RESP 18; O2SAT 97
== END 2024-05-15 14:25 | disposition home or self-care (01) ==
PROVIDERS: PCP Family Medicine; Referring Provider Surgery; Visit Provider Surgery
PROC: 0DJD8ZZ Inspection of Lower Intestinal Tract, Via Natural or Artificial Opening Endoscopic (ICD-10-PCS; CPT 45378; principal; 2024-05-15 13:30)
DX: Z12.11 Encounter for screening for malignant neoplasm of colon (principal)
CPT/HCPCS: G0121; J2704; J3010

== ENCOUNTER → 2025-03-19 09:41 | Outpatient (CLI) | payer MEDICARE, SELFPAY ==
--- NOTE | 2025-03-19 09:42 | DI.RAD.S_ITS ---
PROCEDURE: XR DEXA AXIAL SKELETON INDICATIONS: screening for disorders of bone density and structure COMPARISON: None. FINDINGS: Lumbar Spine: Bone mineral density 1.13 g/cm2, T score 0.7, Left Femoral Neck: Bone mineral density 0.87 g/cm2, T score 0.2. Left Hip: Bone mineral density 0.99 g/cm2, T score 0.4,. Fracture Risk Calculation (when applicable): Not applicable. (T score greater or equal to -1.0 to: NORMAL) (T score from -1.1 to -2.4: OSTEOPENIA) (T score less than or equal to -2.5: OSTEOPOROSIS) IMPRESSION: T-scores are within normal limits Follow-up guidelines as follows: Osteoporosis: Consider a repeat DEXA and Vertebral Fracture Assessment (VFA) exam in 2 years or sooner if medically necessary, to reassess this patient's status. Osteopenia: Consider a repeat DEXA in 2-3 years to reassess this patient's status, or if there is a new clinical indication. Normal: Consider a repeat DEXA in 5 years or sooner, or if there is a new clinical indication. All treatment decisions require clinical judgment and consideration of individual patient factors, including patient preferences, comorbidities, previous drug use, risk factors not captured in the FRAX model (e.g., frailty, falls, vitamin D deficiency, increased bone turnover, interval significant decline in bone density ) and possible under- or over-estimation of fracture risk by FRAX. In addition, the NOF Guide recommends that FDA-approved medical therapies be considered in postmenopausal women and men age >= 50 years with a: * Hip or vertebral (clinical or morphometric) fracture * T-score of <=-2.5 at the spine or hip * Ten-year fracture probability by FRAX of >= 3% for hip fracture or >=20% for major osteoporotic fracture. Dictated by: Waqar Chavez M.D. on 03/19/2025 at 14:27 Approved by: Waqar Chavez M.D. on 03/19/2025 at 14:28
[2025-03-19 10:45] LABS: Hematocrit 42.8 % (36-46); Hemoglobin 14.1 g/dL (12.0-16.0); Mean Corpuscular HGB Conc 32.9 % (30-36); Mean Corpuscular Hemoglobin 30.5 PG (26-34); Mean Corpuscular Volume 92.8 fL (80-100); Platelet Count 317 X10^3/uL (150-400)
[2025-03-19 11:50] LABS: Alanine Aminotransferase 40 IU/L (<35); Albumin 4.0 g/dL (3.5-5.0); Albumin Globulin Ratio 1.7 (1.0-2.8); Alkaline Phosphatase 106 U/L (38-126); Blood Urea Nitrogen 29 mg/dL (7-17); Carbon Dioxide 28 mmol/L (22-32); Cholesterol 159 mg/dL (140-199); Estimated Glomerular Filt Rate 54 mL/min (>60); Globulin 2.3 g/dL (1.7-4.1); HEMOLYSIS < 15 (0-50); Total Protein 6.3 g/dL (6.3-8.2); Triglycerides 69 mg/dL (35-150)
[2025-03-19 11:54] LABS: Hep C Virus Ab w/Reflex Quant NEGATIVE s/c (NEGATIVE)
[2025-03-19 22:01] LABS: Ferritin 29 ng/mL (11-264)
[2025-03-19 22:22] LABS: Calcium 10.0 mg/dL (8.4-10.2); Chloride 102 mmol/L (98-107); Glucose 102 mg/dL (70-99); HDL Cholesterol 67 mg/dL (40-60); Potassium 5.0 mmol/L (3.4-5.1); Sodium 137 mmol/L (137-145)
== END ==
PROVIDERS: PCP Family Medicine; Referring Provider Family Medicine; Visit Provider Family Medicine
DX: M85.89 Other specified disorders of bone density and structure, multiple sites (principal); I12.9 Hypertensive chronic kidney disease with stage 1 through stage 4 chronic kidney disease, or unspecified chronic kidney disease; N18.30 Chronic kidney disease, stage 3 unspecified; G35 Multiple sclerosis; E78.5 Hyperlipidemia, unspecified; Z11.59 Encounter for screening for other viral diseases; G25.81 Restless legs syndrome; G43.009 Migraine without aura, not intractable, without status migrainosus
CPT/HCPCS: 36415; 77080; 80053; 80061; 82728; 85027; 86803

== ENCOUNTER → 2025-06-30 15:34 | Outpatient (CLI) | payer MEDICARE, SELFPAY ==
--- NOTE | 2025-06-30 15:35 | DI.MG.S_ITS ---
MM screening mammo BI: 06/30/2025. BI-RADS: 1 CLINICAL: 75-year old female for bilateral screening mammogram. Tyrer-Cuzick lifetime risk of 4.4%. No personal or first-degree family history of breast cancer. PRIOR EXAMS 07/08/2023, 06/12/2023, 06/12/2022, 06/05/2021. MAMMOGRAPHY TECHNIQUE: 2D and 3D (tomosynthesis) digital mammographic views obtained, with additional images as needed for full coverage. Current study was also evaluated with a Computer Aided Detection (CAD) system. DENSITY C. The breasts are heterogeneously dense, which may obscure small masses. MAMMOGRAPHY FINDINGS Bilateral: No suspicious mass, asymmetry, microcalcification, or other abnormality seen. IMPRESSION: * No evidence of malignancy. RECOMMENDATIONS Bilateral * Annual screening mammography. OVERALL ASSESSMENT CATEGORY BI-RADS-1: Negative. The [employer] recommends annual screening mammography beginning at age 40 for women with average risk of breast cancer. ELECTRONICALLY SIGNED: Marvin Cordova M.D. on 07/01/2025 at 07:44:59 AM PT Interpreting Station ID: [id number]
== END ==
LOC: MAMMO 15:34
PROVIDERS: PCP Family Medicine; Referring Provider Family Medicine; Visit Provider Family Medicine
DX: Z12.31 Encounter for screening mammogram for malignant neoplasm of breast (principal); R92.333 Mammographic heterogeneous density, bilateral breasts
CPT/HCPCS: 77063; 77067